=== PATIENT | male | born 1940 | race Caucasian/White ===

== ENCOUNTER → 2017-07-12 | Outpatient (CLI) | payer MEDICARE ==
--- NOTE | 2017-07-18 05:08 | ENG ---
ELECTRONYSTAGMOGRAM REPORT VNG REPORT: AGE: 76 VNG INDICATIONS: Vertigo more than 40 years, comes in spells of attack, can last for 2 days at a time and is sporadic. It is affected and triggered by all types of body positions and movements. VNG FINDINGS: Saccades shows intact peak velocities, accuracies and latencies. Gaze with fixation shows no nystagmus in any of the directions of gaze including centrally with vision denied. Tracking shows no significant breakups. Optokinetic nystagmus shows no significant asymmetry. Static position testing in 6 positions tested first with eyes opened and then with vision denied shows no nystagmus. Cori-Hallpike maneuvers are negative bilaterally. Caloric testing is adequate in response and shows 26% unilateral left caloric weakness, which is abnormal. Directional preponderance same 26% left ear. Fixation index negative. 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 Other features of this exam were unremarkable. MMODL / IJN: [id number] /
== END | disposition home or self-care (01) ==
LOC: NEUROMAIN 12:59
PROVIDERS: ATTEND Otolaryngology
DX: R42 Dizziness and giddiness (principal)
CPT/HCPCS: 92537; 92540

== ENCOUNTER → 2019-01-03 | Outpatient (CLI) | payer MEDICARE ==
--- NOTE | 2019-01-03 11:32 | US ---
EXAMINATION TYPE: US abdomen complete DATE OF EXAM: 01/03/2019 COMPARISON: NONE CLINICAL HISTORY: 78-year-old male R14.0 ABD DISTENSION. TECHNIQUE: Multiple sonographic images of the abdomen are obtained. FINDINGS: EXAM MEASUREMENTS: Liver Length: 14.2 cm Gallbladder Wall: 0.2 cm CBD: 0.3 cm Spleen: 9.7 cm Right Kidney: 10.0 x 5.2 x 5.6 cm Left Kidney: 11.7 x 6.3 x 6.3 cm Pancreas: Pancreatic head and tail obscured by bowel gas shadowing. Visualized body shows no gross a bnormality. Liver: Slightly echogenic and coarsened. Normal size. No focal lesion. Gallbladder: wnl Evidence for sonographic Weldon's sign: No CBD: wnl as visualized, distal portion obscured by bowel gas Spleen: wnl Right Kidney: No hydronephrosis Left Kidney: No hydronephrosis Upper IVC: wnl Abd Aorta: wnl as visualized IMPRESSION: 1. Slightly coarsened appearance to the liver could be on a technical basis or could reflect mild fat ty infiltration or nonspecific hepatocellular disease. Correlate with LFTs and lipid profile. 2. Otherwise, no specific abnormality of the abdomen is seen.
== END | disposition home or self-care (01) ==
LOC: RADUSWWP 09:54
DX: R14.0 Abdominal distension (gaseous) (principal)
CPT/HCPCS: 76700

== ENCOUNTER 2019-04-24 11:40 | Day surgery (SDC) | payer MEDICARE ==
[2019-04-20 15:04] VITALS: BMI 31.3
[~2019-04-24 11:40] MED LIST: LACTATED RINGERS 1,000 ML IV SCH; LIDOCAINE 1% 20 ML VIAL (10MG/ML) FOR IV START INTRADERMA PRN
[2019-04-24 11:57] VITALS: TEMP 97.9
[2019-04-24] MEDS ORDERED: LIDOCAINE 1% INJ 10MG/ML (20 ML MDV) ONE (12:49)
[2019-04-24] MEDS ORDERED: PROPOFOL 10 MG/ML 20 ML VIAL IV ONE (12:49)
--- NOTE | 2019-04-24 13:09 | P.PCN ---
Date of Procedure: 04/24/19 Description of Procedure: BRIEF HISTORY: Patient is a 78-year-old, pleasant, male who presents for outpatient EGD for evaluation of epigastric discomfort. He reports mild epigastric discomfort predominantly secondary to abdominal distention and bloating. The patient denies any medications for treatment of symptoms. He does report a diet high in dairy. He does believe he may have had an EGD in the past but is unsure when. Last colonoscopy was 12/01/2018 and at that time the patient had internal hemorrhoids and sigmoid diverticulosis noted.. PROCEDURE PERFORMED: Esophagogastroduodenoscopy with biopsy. PREOPERATIVE DIAGNOSIS: Epigastric pain, bloating and distention. ESTIMATED BLOOD LOSS: Minimal. IV sedation per anesthesia. PROCEDURE: After informed consent was obtained, the patient was brought into the endoscopy unit. IV sedation was administered by Anesthesia under continuous monitoring. Initially the Olympus GIF-190 video endoscope was inserted into the mouth. Esophagus intubated without any difficulty. It was gradually advanced into the stomach and duodenum and carefully examined. The bulb and the second part of the duodenum appeared normal, with biopsies taken to rule out celiac sprue. The scope at this time was withdrawn to the stomach, adequately insufflated with air, and upon careful examination, mucosa of the antrum, body, cardia and the fundus appeared grossly normal with only some mild scattered erythema suggestive of mild gastritis with biopsies taken. The scope was then withdrawn into the esophagus. The GE junction was located at 41 cm from the incisors. The esophagus appeared normal. There were no erosions or ulcerations seen and the patient tolerated the procedure well. IMPRESSION: 1. Gastritis antrum body, biopsied. 2. Duodenal biopsies to rule out celiac sprue. RECOMMENDATIONS: The findings of this examination were discussed with the patient. Okay to resume diet. Have suggested dietary modifications including restriction of dairy. We'll recommend a trial of Prilosec 20 mg daily. Await pathology from biopsies.
[2019-04-24 13:16] VITALS: RESP 16
[2019-04-24 13:37] VITALS: BP 147/83; PULSE 69
== END 2019-04-24 13:47 | disposition home or self-care (01) ==
LOC: ORWHC2ENDO 11:40
PROVIDERS: ATTEND Internal Medicine
DX: K29.50 Unspecified chronic gastritis without bleeding (principal); K57.30 Diverticulosis of large intestine without perforation or abscess without bleeding; K64.8 Other hemorrhoids; I10 Essential (primary) hypertension; E78.5 Hyperlipidemia, unspecified; C44.90 Unspecified malignant neoplasm of skin, unspecified; M19.90 Unspecified osteoarthritis, unspecified site; H91.90 Unspecified hearing loss, unspecified ear; Z79.891 Long term (current) use of opiate analgesic; Z79.899 Other long term (current) drug therapy; Z87.891 Personal history of nicotine dependence; Z80.3 Family history of malignant neoplasm of breast
CPT/HCPCS: 43239; 88305; J2001; J2704

== ENCOUNTER → 2020-12-11 | Outpatient (CLI) | payer MEDICARE ==
--- NOTE | 2020-12-11 20:06 | CT ---
EXAMINATION TYPE: CT abdomen w con DATE OF EXAM: 12/11/2020 COMPARISON: Ultrasound abdomen September 05, 2019 HISTORY: Upper abdominal pain and distention CT DLP: 1056.4 mGycm, Automated Exposure Control for Dose Reduction was Utilized. CONTRAST: CT scan of the abdomen is performed without oral but with IV Contrast, patient injected with 100 mL o f Isovue 300. FINDINGS: LUNG BASES: No significant abnormality is appreciated. LIVER/GB: Liver normal in size. No concerning mass or ductal dilatation. PANCREAS: No significant abnormality is seen. SPLEEN: No significant abnormality is seen. ADRENALS: No significant abnormality is seen. KIDNEYS: Subcentimeter low dense lesion anterior right kidney midpole level series 5 image 31 too sma ll to further characterize presumed benign. Symmetric cortical medullary uptake and excretion without hydronephrosis seen bilaterally. There is 2 to 3 mm nonobstructing calculus lower pole right kidney axial image 35 series 3 BOWEL: No significant abnormality is seen. LYMPH NODES: No greater than 1cm abdominal lymph nodes are appreciated. OSSEOUS STRUCTURES: No significant abnormality is seen. OTHER: Moderate calcified plaque of the aorta extends into branch vessels. Ectatic course axial image 34, no greater than 3.0 cm aneurysm IMPRESSION: No ascites. No acute findings identified.
== END ==
LOC: RADCTMAIN 18:10
PROVIDERS: ATTEND Family Medicine
DX: R10.9 Unspecified abdominal pain (principal)
CPT/HCPCS: 74160; Q9967

== ENCOUNTER 2024-07-07 22:00 | Emergency (ER) | payer MEDICARE ==
[2024-07-07 22:07] VITALS: TEMP 98
--- NOTE | 2024-07-07 23:00 | ED ---
General Adult HPI - General Chief complaint: Weakness Stated complaint: Weakness Time Seen by Provider: 07/07/24 22:20 Source: patient Mode of arrival: EMS Limitations: no limitations - History of Present Illness Initial comments: This patient is an 83-year-old man brought by EMS to have evaluation because he has not been feeling well. The patient states that he has been feeling fatigued, having generalized weakness, also some nausea and generalized headache that he rates as mild to moderate. Patient states this is not worst headache of life. No associated neck stiffness, fever, neurologic symptoms. The patient was given Zofran by EMS and states that the nausea is feeling better. Onset/Timin -: days(s) Location: head Radiation: non-radiation Quality: aching Consistency: constant Improves with: none Worsens with: none Associated Symptoms: nausea/vomiting, weakness Treatments Prior to Arrival: other (Zofran) - Related Data Home Medications Medication Instructions Recorded Confirmed Acetaminophen with Codeine 1 tab PO HS 04/20/19 04/24/19 [Tylenol w/codeine #3] Bisoprolol-Hctz 5-6.25 mg [Ziac 1 each PO QAM 04/20/19 04/24/19 5-6.25] Meclizine HCl 12.5 mg PO DAILY 04/20/19 04/24/19 Psyllium Husk (with Sugar) 0 gm PO DAILY 04/20/19 04/24/19 [Metamucil Powder] Simvastatin 40 mg PO DAILY 04/20/19 04/24/19 Vit C/E/Zn/Coppr/Lutein/Zeaxan 1 each PO DAILY 04/20/19 04/24/19 [Preservision Areds 2 Softgel] traZODone HCL 50 mg PO HS 04/20/19 04/24/19 Allergies Allergy/AdvReac Type Severity Reaction Status Date / Time No Known Allergies Allergy Verified 07/07/24 22:07 Review of Systems ROS Statement: Those systems with pertinent positive or pertinent negative responses have been documented in the HPI. ROS Other: All systems not noted in ROS Statement are negative. Constitutional: Reports: weakness. Denies: fever, chills Eyes: Denies: eye pain, vision change ENT: Denies: throat pain, congestion Respiratory: Denies: cough, dyspnea Cardiovascular: Denies: chest pain, palpitations, edema, syncope Gastrointestinal: Reports: nausea. Denies: abdominal pain, vomiting, diarrhea, melena, hematochezia Genitourinary: Denies: dysuria, hematuria Musculoskeletal: Denies: back pain Skin: Denies: rash Neurological: Reports: headache. Denies: weakness, numbness, confusion Past Medical History Past Medical History: Cancer, Eye Disorder, Hearing Disorder / Deafness, Hyperlipidemia, Hypertension, Osteoarthritis (OA) Additional Past Medical History / Comment(s): Hx skin cancer. Macular degeneration. Hearing aid use. History of Any Multi-Drug Resistant Organisms: None Reported Additional Past Surgical History / Comment(s): Surgery for deviated septum, skin cancer removed. Past Anesthesia/Blood Transfusion Reactions: No Reported Reaction Past Psychological History: No Psychological Hx Reported Smoking Status: Never smoker Past Alcohol Use History: None Reported Past Drug Use History: None Reported - Past Family History Sister(s) Family Medical History: Cancer Additional Family Medical History / Comment(s): Breast cancer. General Exam Limitations: no limitations General appearance: alert, in no apparent distress Head exam: Present: atraumatic, normocephalic Eye exam: Present: normal appearance, PERRL, EOMI. Absent: scleral icterus, conjunctival injection, nystagmus Neck exam: Present: normal inspection, full ROM. Absent: meningismus Respiratory exam: Present: normal lung sounds bilaterally. Absent: respiratory distress, wheezes, rales, rhonchi, stridor, accessory muscle use Cardiovascular Exam: Present: regular rate, normal rhythm, normal heart sounds. Absent: systolic murmur, diastolic murmur, rubs, gallop GI/Abdominal exam: Present: soft. Absent: distended, tenderness, guarding, rebound, rigid, mass Extremities exam: Present: normal inspection, normal capillary refill. Absent: pedal edema, calf tenderness Back exam: Present: normal inspection. Absent: CVA tenderness (R), CVA tenderness (L), vertebral tenderness Neurological exam: Present: alert, oriented X3, CN II-XII intact. Absent: motor sensory deficit Skin exam: Present: warm, dry, intact, normal color. Absent: rash Course Vital Signs 07/07/24 07/07/24 07/07/24 22:01 23:23 23:45 Temperature 98.0 F Pulse Rate 104 H 82 84 Respiratory 18 18 18 Rate Blood Pressure 221/117 116/74 166/93 O2 Sat by Pulse 94 L 94 L 94 L Oximetry 07/08/24 07/08/24 07/08/24 00:00 00:24 01:07 Temperature Pulse Rate 92 87 Respiratory 18 16 Rate Blood Pressure 196/124 150/84 134/71 O2 Sat by Pulse 95 95 Oximetry 07/08/24 02:25 Temperature Pulse Rate 82 Respiratory 18 Rate Blood Pressure 150/77 O2 Sat by Pulse 96 Oximetry Medical Decision Making - Medical Decision Making This patient is an 83-year-old man here to have evaluation of generalized weakness and fatigue, mild headache and nausea. On arrival patient found to be hypertensive. He did have lab studies which did reveal elevated lactic acid. The patient on reevaluation is feeling better. He did receive some IV fluid and antihypertensives. We discussed admission for observation but he is feeling like he would like to go home. Discussed appropriate further care and follow-up as well as return parameters. Was pt. sent in by a medical professional or institution (, PA, PLANT EQUIPMENT ENGINEER, urgent care, hospital, or shelter...) When possible be specific @ -[No] Did you speak to anyone other than the patient for history (EMS, parent, family, police, friend...)? What history was obtained from this source @ -[No] Did you review nursing and triage notes (agree or disagree)? Why? @ -[I reviewed and agree with nursing and triage notes] Were old charts reviewed (outside hosp., previous admission, EMS record, old EKG, old radiological studies, urgent care reports/EKG's, shelter records)? Report findings @ -[No old charts were reviewed] Differential Diagnosis (chest pain, altered mental status, abdominal pain women, abdominal pain men, vaginal bleeding, weakness, fever, dyspnea, syncope, headache, dizziness, GI bleed, back pain, seizure, CVA, palpatations, mental health, musculoskeletal)? @ -[Differential Weakness: Hypoglycemia, shock, sepsis, hyponatremia, anemia, infection, [place], ETOH, adverse medicine reaction, overdose, stroke, this is not meant to be an all-inclusive list. EKG interpreted by me (3pts min.). @ -[As above] X-rays interpreted by me (1pt min.). @ -[None done] CT interpreted by me (1pt min.). @ -[None done] U/S interpreted by me (1pt. min.). @ -[None done] What testing was considered but not performed or refused? (CT, X-rays, U/S, labs)? Why? @ -[None] What meds were considered but not given or refused? Why? @ -[None] Did you discuss the management of the patient with other professionals (professionals i.e. DrKeisha, PA, PLANT EQUIPMENT ENGINEER, lab, RT, psych nurse, social service liaison, change number operator, teacher, operational intelligence officer, case briefer)? Give summary @ -[No] Was smoking cessation discussed for >3mins.? @ -[No] Was critical care preformed (if so, how long)? @ -[No] Were there social determinants of health that impacted care today? How? (Homelessness, low income, unemployed, alcoholism, drug addiction, transportation, low edu. Level, literacy, decrease access to med. care, half-way, rehab)? @ -[No] Was there de-escalation of care discussed even if they declined (Discuss DNR or withdrawal of care, Hospice)? DNR status @ -[No] What co-morbidities impacted this encounter? (DM, HTN, Smoking, COPD, CAD, Cancer, CVA, ARF, Chemo, Hep., AIDS, mental health diagnosis, sleep apnea, morbid obesity)? @ -[Hypertension Was patient admitted / discharged? Hospital course, mention meds given and route, prescriptions, significant lab abnormalities, going to OR and other pertinent info. @ -[See above Undiagnosed new problem with uncertain prognosis? @ -[No] Drug Therapy requiring intensive monitoring for toxicity (Heparin, Nitro, Insulin, Cardizem)? @ -[No] Were any procedures done? @ -[No] Diagnosis/symptom? @ -[Acute on chronic hypertension Acute headache Acute, or Chronic, or Acute on Chronic? @ -[default] Uncomplicated (without systemic symptoms) or Complicated (systemic symptoms)? @ -[Uncomplicated Side effects of treatment? @ -[No] Exacerbation, Progression, or Severe Exacerbation? @ -[No] Poses a threat to life or bodily function? How? (Chest pain, [place], [place], pneumonia, PE, COPD, DKA, ARF, appy, cholecystitis, CVA, Diverticulitis, Homicidal, Suicidal, threat to staff... and all critical care pts) @ -[There is low risk of threat to life at this point. Patient does require close follow-up with - Lab Data Result diagrams: 07/07/24 22:35 07/07/24 22:35 Lab Results 07/07/24 07/07/24 07/07/24 Range/Units 22:35 22:35 22:35 WBC 12.3 H (3.8-10.6) k/uL RBC 5.62 (4.30-5.90) m/uL Hgb 16.6 (13.0-17.5) gm/dL Hct 51.3 (39.0-53.0) % MCV 91.2 (80.0-100.0) fL MCH 29.5 (25.0-35.0) pg MCHC 32.3 (31.0-37.0) g/dL RDW 12.5 (11.5-15.5) % Plt Count 256 (150-450) k/uL MPV 8.4 Neutrophils % 84 % Lymphocytes % 10 % Monocytes % 5 % Eosinophils % 0 % Basophils % 0 % Neutrophils # 10.3 H (1.3-7.7) k/uL Lymphocytes # 1.2 (1.0-4.8) k/uL Monocytes # 0.7 (0-1.0) k/uL Eosinophils # 0.0 (0-0.7) k/uL Basophils # 0.0 (0-0.2) k/uL Sodium 136 L (137-145) mmol/L Potassium 4.7 (3.5-5.1) mmol/L Chloride 98 (98-107) mmol/L Carbon Dioxide 26 (22-30) mmol/L Anion Gap 12 mmol/L BUN 16 (9-20) mg/dL Creatinine 0.81 (0.66-1.25) mg/dL Est GFR (CKD-EPI)AfAm >90 (>60 ml/min/1.73 sqM) Est GFR (CKD-EPI)NonAf 82 (>60 ml/min/1.73 sqM) Glucose 198 H (74-99) mg/dL Lactic Ac Sepsis Rflx Plasma Lactic Acid Chava 4.7 H* (0.7-2.0) mmol/L Calcium 9.7 (8.4-10.2) mg/dL Magnesium 2.0 (1.6-2.3) mg/dL Total Bilirubin 1.0 (0.2-1.3) mg/dL AST 26 (17-59) U/L ALT 25 (4-49) U/L Alkaline Phosphatase 62 (38-126) U/L Troponin I (0.000-0.034) ng/mL Total Protein 8.5 H (6.3-8.2) g/dL Albumin 5.3 H (3.5-5.0) g/dL 07/07/24 07/08/24 Range/Units 22:35 00:16 WBC (3.8-10.6) k/uL RBC (4.30-5.90) m/uL Hgb (13.0-17.5) gm/dL Hct (39.0-53.0) % MCV (80.0-100.0) fL MCH (25.0-35.0) pg MCHC (31.0-37.0) g/dL RDW (11.5-15.5) % Plt Count (150-450) k/uL MPV Neutrophils % % Lymphocytes % % Monocytes % % Eosinophils % % Basophils % % Neutrophils # (1.3-7.7) k/uL Lymphocytes # (1.0-4.8) k/uL Monocytes # (0-1.0) k/uL Eosinophils # (0-0.7) k/uL Basophils # (0-0.2) k/uL Sodium (137-145) mmol/L Potassium (3.5-5.1) mmol/L Chloride (98-107) mmol/L Carbon Dioxide (22-30) mmol/L Anion Gap mmol/L BUN (9-20) mg/dL Creatinine (0.66-1.25) mg/dL Est GFR (CKD-EPI)AfAm (>60 ml/min/1.73 sqM) Est GFR (CKD-EPI)NonAf (>60 ml/min/1.73 sqM) Glucose (74-99) mg/dL Lactic Ac Sepsis Rflx Y Plasma Lactic Acid Chava (0.7-2.0) mmol/L Calcium (8.4-10.2) mg/dL Magnesium (1.6-2.3) mg/dL Total Bilirubin (0.2-1.3) mg/dL AST (17-59) U/L ALT (4-49) U/L Alkaline Phosphatase (38-126) U/L Troponin I <0.012 (0.000-0.034) ng/mL Total Protein (6.3-8.2) g/dL Albumin (3.5-5.0) g/dL Disposition Clinical Impression: Hypertension, Headache Disposition: HOME SELF-CARE Condition: Good Instructions (If sedation given, give patient instructions): Chronic Hypertension (DC) Is patient prescribed a controlled substance at d/c from ED?: No Referrals: Rosa Britton MD [Primary Care Provider] - 1-2 days
[2024-07-07] MEDS: LABETALOL 5 MG/ML VIAL MDV IVP STA (23:12)
[2024-07-07] MEDS: METOCLOPRAMIDE 5 MG/ML 2 ML VIAL IVP STA (23:13)
[2024-07-07 23:31] LABS: Basophils % (A) 0 %; Eosinophils % (A) 0 %; HCT 51.3 % (39.0-53.0); HGB 16.6 gm/dL (13.0-17.5); Lymphocytes # (A) 1.2 k/uL (1.0-4.8); Lymphocytes % (A) 10 %; MCH 29.5 pg (25.0-35.0); MCHC 32.3 g/dL (31.0-37.0); MCV 91.2 fL (80.0-100.0); Mean Platelet Volume 8.4; Monocytes # (A) 0.7 k/uL (0-1.0); Monocytes % (A) 5 %; Neutrophils # (A) 10.3 k/uL (1.3-7.7); Neutrophils % (A) 84 %; Platelet Count 256 k/uL (150-450); RBC 5.62 m/uL (4.30-5.90); RDW 12.5 % (11.5-15.5); WBC 12.3 k/uL (3.8-10.6)
[2024-07-07 23:40] LABS: ALT 25 U/L (4-49); AST 26 U/L (17-59); African American GFR (CKD) >90 (>60 ml/min/1.73 sqM); Albumin 5.3 g/dL (3.5-5.0); Alkaline Phosphatase 62 U/L (38-126); Anion Gap 12 mmol/L; Blood Urea Nitrogen 16 mg/dL (9-20); Calcium 9.7 mg/dL (8.4-10.2); Carbon Dioxide 26 mmol/L (22-30); Chloride 98 mmol/L (98-107); Glucose 198 mg/dL (74-99); Non-African American GFR(CKD) 82 (>60 ml/min/1.73 sqM); Potassium 4.7 mmol/L (3.5-5.1); Sodium 136 mmol/L (137-145); Total Protein 8.5 g/dL (6.3-8.2)
[2024-07-08] MEDS: LABETALOL 5 MG/ML VIAL MDV IVP STA (00:20)
[2024-07-08] MEDS: SODIUM CHLORIDE 0.9% 500 ML 500 ML IV STA (01:32)
[2024-07-08 02:26] VITALS: BP 150/77; PULSE 82; RESP 18
== END 2024-07-08 02:26 | disposition home or self-care (01) ==
LOC: EC 22:00
DX: I10 Essential (primary) hypertension (principal)
CPT/HCPCS: 36415; 80053; 83605; 83735; 84484; 85025; 93005

== ENCOUNTER → 2025-02-27 | Outpatient (CLI) | payer MEDICARE ==
--- NOTE | 2025-02-27 12:39 | MR ---
EXAMINATION TYPE: MR brain wo/w con DATE OF EXAM: 02/27/2025 10:56 AM COMPARISON: None. CLINICAL INDICATION: Male, 84 years old with history of R41.3, Memory loss TECHNIQUE: Multiplanar, multisequence images of the brain and brainstem were acquired before and aft er administration of 9 mL IV Gadobutrol. Diffusion weighted imaging is performed. FINDINGS: No evidence for acute infarction, hemorrhage, mass, mass effect, midline shift, herniation, effacemen t of basal cisterns, or extra-axial fluid collection. Mild volume loss overlying the bilateral cerebral convexities. Mild ventricular prominence likely due to central cerebral atrophy. Major intracranial flow voids are intact. Persistent origin bilateral posterior cerebral arteri es. T2/FLAIR weighted sequences show mild patchy periventricular bright signal change and a couple bright signal foci within the deep white matter as well. Midline structures demonstrate normal morphology. The craniocervical junction is normal. Post contrast images demonstrate no evidence of pathologic enhancement. Dural venous sinuses are pat ent. Moderate mucosal thickening ethmoid air cells. Leftward nasal septal deviation. Globes are intact. IMPRESSION: 1. No acute intracranial abnormality seen. Mild cerebral atrophy and mild burden of chronic small ves joseph ischemic disease. No enhancing lesions. 2. Moderate chronic ethmoid sinus disease. [facility], , 02/27/2025 12:36 PM
== END | disposition home or self-care (01) ==
LOC: RADMRIMAIN 09:39
PROVIDERS: ATTEND Family Medicine
DX: F02.B18 Dementia in other diseases classified elsewhere, moderate, with other behavioral disturbance (principal); G31.9 Degenerative disease of nervous system, unspecified; R41.3 Other amnesia; J32.2 Chronic ethmoidal sinusitis; I67.82 Cerebral ischemia
CPT/HCPCS: 70553; A9585